=== PATIENT | female | born 1980 ===

== ENCOUNTER 2016-11-12 09:44 | Day surgery (SDC) | payer OTHER ==
[~2016-11-12] VITALS: Ht 149.9 cm; Wt 73.4 kg
[2016-11-12 10:08] VITALS: BP 119/77; PULSE 71; TEMP 98
[2016-11-12] MEDS ORDERED: PRIL40 PO (10:14)
[2016-11-12] MEDS ORDERED: LINZESS290CAP PO (10:14)
[2016-11-12] MEDS ORDERED: AMBIEN 10MG10 MG PO (10:15)
[2016-11-12] MEDS ORDERED: MOBIC15 MG PO (10:15)
[2016-11-12] MEDS ORDERED: LIORESAL 1010 MG/TAB PO (10:16)
[2016-11-12] MEDS ORDERED: VENTOLIN0.09 MG IH (10:21)
--- NOTE | 2016-11-12 10:21 | NUR ---
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
[2016-11-12 11:25] VITALS: BP 97/56; PULSE 93; TEMP 98.3
[2016-11-12 11:45] VITALS: BP 98/73; PULSE 65
[2016-11-12 12:00] VITALS: BP 91/64; PULSE 55
--- NOTE | 2016-11-12 13:53 | NUR ---
1125 REC'D FROM PROCEDURE; ASSISTED TO AMB FROM CART TO RECLINER; MONITOR ON; CALL LIGHT WITHIN REACH.
--- NOTE | 2016-11-12 13:54 | NUR ---
1214 DISCHARGED PER W/C TO HOME; ALERT & ORIENTED; STEADY GAIT; INSTR REVIEWED & COPY SENT HOME WITH PT.
--- NOTE | 2016-11-12 13:54 | NUR ---
1145 TAKING PO LIQ & PEDRO LUIS WELL.
== END 2016-11-12 13:08 | disposition home or self-care (01) ==
LOC: SDCO 09:44
DX: K59.00 Constipation, unspecified (principal); R19.4 Change in bowel habit; R14.0 Abdominal distension (gaseous); K58.9 Irritable bowel syndrome, unspecified; Z90.49 Acquired absence of other specified parts of digestive tract
CPT/HCPCS: OP; J2250; J2405; J3010; J7030